=== PATIENT | female | born 1995 | race Caucasian/White ===

== ENCOUNTER 2018-07-21 18:56 | Outpatient (CLI) | payer BC ==
[~2018-07-21] VITALS: Ht 162.6 cm; Wt 112.3 kg
[2018-07-21 19:12] VITALS: BP 139/71
[2018-07-21] MEDS ORDERED: LACTATED RINGERS 1,000 ML IVBOLUS ONE (20:00)
[2018-07-21 20:01] LABS: MICROSCOPIC INDICATED
[2018-07-21 20:14] LABS: BASOPHILS # (AUTO) 0.04 x10^3/uL (0-0.1); BASOPHILS % (AUTO) 0 % (0-1); EOSINOPHILS # (AUTO) 0.33 x10^3/uL (0-0.4); EOSINOPHILS % (AUTO) 3 % (1-7); LYMPHOCYTES # (AUTO) 2.33 x10^3/uL (1-3.4); LYMPHOCYTES % (AUTO) 19 % (22-44); MD NO; MEAN CORPUSCULAR HEMOGLOBIN 28.1 pg (27.0-34.8); MEAN CORPUSCULAR HGB CONC 33.9 g/dL (32.4-35.8); MEAN CORPUSCULAR VOLUME 82.8 fL (80-100); MEAN PLATELET VOLUME 7.9 fL (7.4-10.4); MONOCYTES # (AUTO) 0.62 x10^3/uL (0.2-0.8); MONOCYTES % (AUTO) 5 % (2-9); NEUTROPHILS # (AUTO) 8.81 x10^3/uL (1.8-6.8); NEUTROPHILS % (AUTO) 73 % (42-75); PLATELET COUNT 266 x10^3/uL (130-400); RED BLOOD COUNT 4.63 x10^6/uL (3.82-5.3); RED CELL DISTRIBUTION WIDTH 14.1 % (9.6-15.2)
[2018-07-21 20:23] LABS: ALANINE AMINOTRANSFERASE 27 U/L (12-78); ALBUMIN 3.1 g/dL (3.4-5.0); ANION GAP 10 mmol/L (5-15); CALCIUM 8.9 mg/dL (8.5-10.1); CHLORIDE 109 mmol/L (98-107); CREATININE 0.55 mg/dL (0.55-1.02)
[2018-07-21 20:25] LABS: ALKALINE PHOSPHATASE 103 U/L (45-117); BILIRUBIN,TOTAL 0.5 mg/dL (0.2-1.0); TOTAL PROTEIN 7.2 g/dL (6.4-8.2)
[2018-07-21] MEDS ORDERED: CEPH-368 PO (21:40)
[2018-07-21] MEDS ORDERED: ONDA4TAB13 SL (21:41)
[2018-07-21] MEDS ORDERED: [UNRECOGNIZED DRUG - CODE] PO (21:43)
== END 2018-07-21 21:50 | disposition home or self-care (01) ==
LOC: LDOP 18:56
PROVIDERS: ATTEND Obstetrics & Gynecology
DX: O26.892 Other specified pregnancy related conditions, second trimester (principal); Z3A.22 22 weeks gestation of pregnancy; R10.9 Unspecified abdominal pain
CPT/HCPCS: 36415; 59025; 80053; 81001; 82150; 83690; 85025; 87086; 96360; 99201; J7120; G0463

== ENCOUNTER 2018-10-21 08:16 | Emergency (ER) | payer BC, MEDICAID ==
[~2018-10-21] VITALS: Ht 162.6 cm; Wt 114.0 kg
[~2018-10-21 08:16] MED LIST: CEPH-368 PO; ONDA4TAB13 SL; [UNRECOGNIZED DRUG - CODE] PO
[2018-10-21 08:19] VITALS: BP 130/83
== END 2018-10-21 09:09 | disposition home or self-care (01) ==
LOC: ED 09:00
DX: B34.9 Viral infection, unspecified (principal)
CPT/HCPCS: 99282

== ENCOUNTER 2018-11-10 16:25 | Outpatient (CLI) | payer BC, MEDICAID ==
[~2018-11-10] VITALS: Ht 162.6 cm; Wt 116.3 kg
[2018-11-10 17:14] VITALS: BP 139/71
== END 2018-11-10 18:26 | disposition home or self-care (01) ==
LOC: LDOP 16:25
PROVIDERS: ATTEND Obstetrics & Gynecology
DX: O26.893 Other specified pregnancy related conditions, third trimester (principal); R10.9 Unspecified abdominal pain; O99.89 Other specified diseases and conditions complicating pregnancy, childbirth and the puerperium; M54.9 Dorsalgia, unspecified; Z3A.38 38 weeks gestation of pregnancy
CPT/HCPCS: 36415; 59025; 80307; 81001; 85025; 87086; 99211; G0463

== ENCOUNTER 2018-11-15 01:33 | Inpatient (IN) | payer BC, MEDICAID ==
[~2018-11-15] VITALS: Ht 162.6 cm; Wt 119.0 kg
[2018-11-16 07:39] VITALS: BP 118/75
== END 2018-11-16 16:05 | disposition home or self-care (01) | DRG 807 ==
LOC: LDIP 06:22 → 2NW 15:20
PROVIDERS: ADMIT Obstetrics & Gynecology; ATTEND Obstetrics & Gynecology
PROC: 0HQ9XZZ Repair Perineum Skin, External Approach (ICD-10-PCS; principal; 2018-11-15)
PROC: 10E0XZZ Delivery of Products of Conception, External Approach (ICD-10-PCS; 2018-11-15)
PROC: 10907ZC Drainage of Amniotic Fluid, Therapeutic from Products of Conception, Via Natural or Artificial Opening (ICD-10-PCS; 2018-11-15)
PROC: 10H07YZ Insertion of Other Device into Products of Conception, Via Natural or Artificial Opening (ICD-10-PCS; 2018-11-15)
PROC: 3E033VJ Introduction of Other Hormone into Peripheral Vein, Percutaneous Approach (ICD-10-PCS; 2018-11-15)
DX: O43.113 Circumvallate placenta, third trimester (principal); Z37.0 Single live birth; O70.0 First degree perineal laceration during delivery; Z3A.39 39 weeks gestation of pregnancy
CPT/HCPCS: 36415; 82803; 85025; 86850; 86900; G0378; J2405; J3010; J2590; J7120